=== PATIENT | male | born 1940 ===

== ENCOUNTER 2017-12-22 01:13 | Inpatient (IN) | payer MEDICARE ==
[2017-12-22 01:13] VITALS: BMI 25.7
[2017-12-22] MEDS ORDERED: Sodium Chloride 0.9% 1,000 ML IV ONE (01:29)
[2017-12-22] MEDS ORDERED: Amoxicillin-Clav 875-125 mg Tab PO STA (01:30)
[2017-12-22 01:39] LABS: BASO # 0.1 K/uL (0.0-0.2); BASO % 0.9 % (0.0-2.0); EOS # 0.6 K/uL (0.0-0.7); HEMOGLOBIN 11.9 g/dL (12.0-18.0); LYMPH # 2.9 K/uL (1.0-4.3); LYMPH % 23.8 % (20.0-40.0); MEAN CELL VOLUME 87.5 fL (80.0-94.0); MEAN CORPUSCULAR HEMOGLOBIN 28.4 pg (27.0-31.0); MEAN CORPUSCULAR HGB CONC 32.4 g/dL (33.0-37.0); MEAN PLATELET VOLUME 8.3 fL (7.2-11.7); MONO # 1.3 K/uL (0.0-0.8); MONO % 10.2 % (0.0-10.0); NEUT # 7.4 K/uL (1.8-7.0); NEUT % 60.1 % (50.0-75.0); RBC 4.19 Mil/uL (4.40-5.90); RED CELL DISTRIBUTION WIDTH 15.6 % (11.5-14.5); WHITE BLOOD COUNT 12.3 K/uL (4.8-10.8)
--- NOTE | 2017-12-22 01:40 | C.PDOC ---
History Of Present Illness 77-year-old male, who is s/p valve replacement, presents to the ED for evaluation of episode of epistaxis which began at 0100 today. Patient states he is taking Eliquis. He denies any other complaints at this time. Time Seen by Provider: 12/22/17 01:16 Chief Complaint (Nursing): ENT Problem History Per: Patient History/Exam Limitations: None Onset/Duration Of Symptoms: Hrs Current Symptoms Are (Timing): Still Present Past Medical History Reviewed: Historical Data, Nursing Documentation, Vital Signs Vital Signs: Last Vital Signs Temp 98.3 F 12/22/17 12:00 Pulse 118 H 12/22/17 09:40 Resp 19 12/22/17 09:40 BP 133/54 L 12/22/17 10:27 Pulse Ox 97 12/22/17 09:40 - Medical History PMH: Atrial Fibrillation Denies: Chronic Kidney Disease Surgical History: No Surg Hx Family History: States: Unknown Family Hx - Social History Hx Alcohol Use: No Hx Substance Use: No - Immunization History Hx Tetanus Toxoid Vaccination: Yes Hx Influenza Vaccination: Yes Hx Pneumococcal Vaccination: Yes Review Of Systems ENT: Positive for: Other (epistaxis, right nare ) Physical Exam - Physical Exam Appears: Non-toxic, No Acute Distress Skin: Normal Color, Warm, Dry Head: Atraumatic, Normacephalic Eye(s): bilateral: Normal Inspection Nose: Epistaxis (active bleeding from right nare ) Oral Mucosa: Moist Neck: Supple Chest: Symmetrical, No Deformity, No Tenderness Cardiovascular: Rhythm Regular, No Murmur Respiratory: Normal Breath Sounds, No Rales, No Rhonchi, No Wheezing Extremity: Normal ROM, Capillary Refill (less than 2 seconds ) Neurological/Psych: Oriented x3, Normal Speech, Normal Cognition ED Course And Treatment - Laboratory Results Result Diagrams: 12/22/17 03:57 12/22/17 01:32 ECG: Interpreted By Me, Viewed By Me ECG Rhythm: Atrial Fibrillation Rate From EC Medical Decision Making Medical Decision Making: Progress: Bloodwork and EKG ordered and reviewed. Augmentin PO and IV fluids given. 0150: I placed a Rhino Rocket into patient's right nostril. Patient tolerated well and bleeding was controlled. 0219: Patient started bleeding again. PCC ordered. Case discussed with Dr. Miah Junior (steam distribution supervisor), who will evaluate the patient at bedside. Disposition - Disposition Disposition: HOSPITALIZED - Scribe Statement The provider has reviewed the documentation as recorded by the Scribe (Anabela Estes) Provider Attestation: All medical record entries made by the Scribe were at my direction and personally dictated by me. I have reviewed the chart and agree that the record accurately reflects my personal performance of the history, physical exam, medical decision making, and the department course for this patient. I have also personally directed, reviewed, and agree with the discharge instructions and disposition. Procedures - Epistaxis Control Consent Obtained: verbal consent, written consent Nostril: Right Device Inserted: nasal tampon (Rhino Rocket) Patient Tolerated Procedure: well, no complications
[2017-12-22 01:46] LABS: INR 1.5; PROTHROMBIN TIME 16.2 SECONDS (9.7-12.2)
[2017-12-22] MEDS ORDERED: Hum Prothrombin CPLX(PCC)4FACT 1 Unit Inj IV STA (02:09)
[2017-12-22 02:17] LABS: ALB/GLOB RATIO 0.8 (1.0-2.1); ALBUMIN 3.4 g/dL (3.5-5.0); ALT/SGPT 22 U/L (21-72); AST/SGOT 33 U/L (17-59); BLOOD UREA NITROGEN 28 mg/dL (9-20); CALCIUM 9.3 mg/dl (8.6-10.4); GFR NON-AFRICAN AMERICAN 59
[2017-12-22] MEDS ORDERED: Oxymetazoline 0.05% Nasal Spray (30 ml) NS STA (02:36)
[2017-12-22] MEDS ORDERED: Tranexamic Acid 1,000 MG in Sodium Chloride 0.9% 50 ML IV STA (03:31)
--- NOTE | 2017-12-22 03:56 | CP.PCM.PN ---
Subjective - Date & Time of Evaluation Date of Evaluation: 12/22/17 Time of Evaluation: 03:56 - Subjective Subjective: see below Objective - Vital Signs/Intake and Output Vital Signs (last 24 hours): Temp Pulse Resp BP Pulse Ox 97.8 F 140 H 16 94/67 L 97 12/22/17 01:35 12/22/17 03:15 12/22/17 03:15 12/22/17 03:15 12/22/17 03:15 - Medications Medications: Current Medications Digoxin (Lanoxin) 0.25 mg PO DAILY [facility] Furosemide (Lasix) 20 mg PO BID COUNTS INCLUDE 234 BEDS AT THE [facility] Home Med (Multivitamin [Multivitamins]) 1 each PO DAILY COUNTS INCLUDE 234 BEDS AT THE [facility] Dextrose/Sodium Chloride (Dextrose 5%/0.45% Ns 1000 Ml) 1,000 mls @ 50 mls/hr IV .Q20H [facility] Metoprolol Tartrate (Lopressor) 50 mg PO BID [facility] Pantoprazole Sodium (Protonix Ec Tab) 40 mg PO DAILY [facility] - Labs Labs: 12/22/17 01:32 12/22/17 01:32 PT 16.2 SECONDS (9.7-12.2) H 12/22/17 01:32 INR 1.5 12/22/17 01:32 APTT 33 SECONDS (21-34) 12/22/17 01:32 Assessment and Plan - Assessment and Plan (Free Text) Assessment: ENT Consult HPI 77 y/o male with new-onset right epistaxis tonight came to ER. B/L long rhinorockets were unable to control bleeding, so i was called (i am covering tonight for Dr. Resendiz). I came in immediately, arriving 30 minutes from the time of being paged. Upon my arrival, there was slow ooze of fresh blood in the oropharynx. Patient is s/p heart valve replacement 4 weeks ago and takes Eliquis. Past Medical History Allergies amiodarone, shellfish Exam awake, alert, comfortable b/l Rhinorockets secure oc/op: clot and fresh blood in oropharynx Right rhinorocket was removed and old clot suctioned from nasal cavity. under rigid endoscopic visualization, there is brisk bleeding that appears to be coming from the mid septum superiorly (difficult to tell definitively due to brisk active bleeding). Due to its location and brisk nature of bleeding, cautery was not possible at this time. Therefore a 4.5cm Merocel sponge was placed directly into this area (between septum and middle turbinate). Bleeding did not stop, so a second pack (8cm Merocel) was then placed below it. Bleeding stopped with placement of this second pack. Strings from the longer pack were then secured to the nose. The first pack did not have strings attached to it, but is not at risk of dislodgement due to the presence of the longer pack below it. Recommend follow Hg HOB elevation abx while packs are in place to cover S. aureus (Ancef is fine) hold Eliquis / other blood thinners if possible
[2017-12-22 04:03] LABS: BASO # 0.1 K/uL (0.0-0.2); BASO % 0.5 % (0.0-2.0); EOS # 0.3 K/uL (0.0-0.7); EOS % 1.5 % (0.0-4.0); HEMOGLOBIN 9.9 g/dL (12.0-18.0); LYMPH # 1.2 K/uL (1.0-4.3); LYMPH % 6.8 % (20.0-40.0); MEAN CELL VOLUME 86.8 fL (80.0-94.0); MEAN CORPUSCULAR HGB CONC 32.2 g/dL (33.0-37.0); MONO # 1.3 K/uL (0.0-0.8); MONO % 7.4 % (0.0-10.0); NEUT # 15.1 K/uL (1.8-7.0); NEUT % 83.8 % (50.0-75.0); PLATELET COUNT 367 K/uL (130-400); RBC 3.54 Mil/uL (4.40-5.90); RED CELL DISTRIBUTION WIDTH 15.6 % (11.5-14.5)
[2017-12-22 04:25] LABS: ANISOCYTOSIS SLIGHT; EOSINOPHIL 1 % (0-4); LYMPHOCYTE 7 % (20-40); MONOCYTE 8 % (0-10); NEUTROPHIL 84 % (50-75); PLATELET ESTIMATE NORMAL (NORMAL); POIKILOCYTOSIS SLIGHT; TOTAL CELLS COUNTED 100
[2017-12-22] MEDS: Dextrose 5%/0.45% NS 1,000 ML IV SCH ×2 (04:57→10:28)
--- NOTE | 2017-12-22 08:11 | RAD ---
Date of service: 12/22/2017 HISTORY: admission COMPARISON: No prior. FINDINGS: LUNGS: Minimal right and mild moderate left basal opacity present. PLEURA: Minimal right and mild moderate left pleural effusion., No pneumothorax apparent. CARDIOVASCULAR: Cardiomegaly. Pulmonary venous status probably top-normal. OSSEOUS STRUCTURES: Bilateral shoulder arthrosis VISUALIZED UPPER ABDOMEN: Normal. OTHER FINDINGS: Metallic device projects over the heart-intrinsic versus and extrinsic etiology uncertain IMPRESSION: Bibasilar pleural effusions left greater than right with inferred compressive atelectasis left greater than right. Concomitant infiltrates here not excluded. Follow-up recommended.
[2017-12-22] MEDS ORDERED: Home Med 1 UNIT (Multivitamin [Multivitamins] 1 EACH) PO SCH (10:00)
[2017-12-22] MEDS ORDERED: Digoxin 250 mcg (0.25 mg) Tab PO SCH (10:00)
[2017-12-22] MEDS ORDERED: Pantoprazole 40 mg EC Tab PO SCH (10:00)
[2017-12-22 10:27] VITALS: PULSE 103
[2017-12-22 12:36] VITALS: TEMP 98.3
[2017-12-22] MEDS ORDERED: Amoxicillin-Clav 875-125 mg Tab PO SCH ×2 (12:47→13:15)
--- NOTE | 2017-12-22 15:14 | CP.PCM.CON ---
<Delvin Degroot - Last Filed: 12/22/17 15:42> History of Present Illness - History of Present Illness History of Present Illness: Critical care consult note: 77 y/o male with PMH of heart valve replacement ([employer], Bioprosthetic valve - taken from patient information card) afib, chf?, presents with R nose bleed. Patient accompanied by his and son reports that he is on anticoagulation for his afib, on Eliquis and since 1 am he developed right epistaxis. In the ED B/L long rhinorockets were placed however unable to control bleeding. ENT was consulted and placed Merocel 4.5cm and 8cm in the nostril. Patient denies any pain. Denies any trauma to his face. 12 Point ROS performed and neg other than stated above. PMH: as above PSH: 2 hernia repairs, heart valve replacement, Allergies: Amiodarone, shellfish FH: Denies SH: Former smoker, currently denies drinking or smoking Review of Systems - Review of Systems All systems: reviewed and no additional remarkable complaints except Past Patient History - Past Medical History & Family History Past Medical History?: Yes - Past Social History Smoking Status: Former Smoker - CARDIAC Hx Atrial Fibrillation: Yes - PULMONARY Hx Respiratory Disorders: No - NEUROLOGICAL Hx Neurological Disorder: No - HEENT Hx HEENT Problems: No - RENAL Hx Chronic Kidney Disease: No - ENDOCRINE/METABOLIC Hx Endocrine Disorders: No - HEMATOLOGICAL/ONCOLOGICAL Hx Blood Disorders: No - INTEGUMENTARY Hx Dermatological Problems: No - MUSCULOSKELETAL/RHEUMATOLOGICAL Hx Falls: No - GASTROINTESTINAL Hx Gastrointestinal Disorders: No - GENITOURINARY/GYNECOLOGICAL Hx Genitourinary Disorders: No - PSYCHIATRIC Hx Substance Use: No - SURGICAL HISTORY Hx Surgeries: Yes Hx Herniorrhaphy: Yes (ash) Hx Valve Replacement: Yes (November 2017) Other/Comment: prostate biopsy - ANESTHESIA Hx Anesthesia: Yes Hx Anesthesia Reactions: No Hx Malignant Hyperthermia: No Meds Allergies/Adverse Reactions: Allergies Allergy/AdvReac Type Severity Reaction Status Date / Time amiodarone Allergy Verified 12/22/17 01:23 FISH Allergy RASH Verified 12/22/17 01:24 shrimp Allergy RASH Verified 12/22/17 01:24 - Medications Medications: Current Medications Amoxicillin/Clavulanate Potassium (Augmentin 875 Mg-125 Mg Tab) 1 tab PO Q12 [facility] PRN Reason: Protocol Last Admin: 12/22/17 13:56 Dose: 1 tab Digoxin (Lanoxin) 0.25 mg PO DAILY [facility] Last Admin: 12/22/17 10:26 Dose: 0.25 mg Furosemide (Lasix) 20 mg PO BID [facility] Last Admin: 12/22/17 10:27 Dose: 20 mg Home Med (Multivitamin [Multivitamins]) 1 each PO DAILY [facility] Dextrose/Sodium Chloride (Dextrose 5%/0.45% Ns 1000 Ml) 1,000 mls @ 50 mls/hr IV .Q20H [facility] Last Admin: 12/22/17 10:28 Dose: 50 mls/hr Metoprolol Tartrate (Lopressor) 50 mg PO BID [facility] Last Admin: 12/22/17 10:26 Dose: 50 mg Pantoprazole Sodium (Protonix Ec Tab) 40 mg PO DAILY [facility] Last Admin: 12/22/17 10:26 Dose: 40 mg Physical Exam - Head Exam Head Exam: ATRAUMATIC, NORMOCEPHALIC - Eye Exam Eye Exam: EOMI, PERRL - ENT Exam Additional comments: Merocel in place - Respiratory Exam Respiratory Exam: Clear to Auscultation Bilateral. absent: Rales, Wheezes - Cardiovascular Exam Cardiovascular Exam: REGULAR RHYTHM, +S1, +S2 - GI/Abdominal Exam GI & Abdominal Exam: Normal Bowel Sounds, Soft. absent: Tenderness - Extremities Exam Extremities exam: Negative for: calf tenderness, pedal edema - Neurological Exam Neurological exam: Alert, CN II-XII Intact, Oriented x3 - Psychiatric Exam Psychiatric exam: Normal Mood - Skin Skin Exam: Dry, Intact, Warm Results - Vital Signs Recent Vital Signs: Last Vital Signs Temp 98.3 F 12/22/17 12:00 Pulse 92 H 12/22/17 14:00 Resp 17 12/22/17 14:00 BP 108/78 12/22/17 13:52 Pulse Ox 98 12/22/17 14:00 - Labs Result Diagrams: 12/22/17 03:57 12/22/17 01:32 Labs: Laboratory Results - last 24 hr 12/22/17 12/22/17 12/22/17 01:32 01:32 01:32 WBC 12.3 H RBC 4.19 L Hgb 11.9 L Hct 36.6 MCV 87.5 MCH 28.4 MCHC 32.4 L RDW 15.6 H Plt Count 396 MPV 8.3 Neut % (Auto) 60.1 Lymph % (Auto) 23.8 [place] % (Auto) 10.2 H Eos % (Auto) 5.0 H Baso % (Auto) 0.9 Neut # (Auto) 7.4 H Lymph # (Auto) 2.9 [place] # (Auto) 1.3 H Eos # (Auto) 0.6 Baso # (Auto) 0.1 Neutrophils % (Manual) Lymphocytes % (Manual) Monocytes % (Manual) Eosinophils % (Manual) Platelet Estimate Poikilocytosis (manual Anisocytosis (manual) PT 16.2 H INR 1.5 APTT 33 Sodium 143 Potassium 4.3 Chloride 104 Carbon Dioxide 25 Anion Gap 17 BUN 28 H Creatinine 1.2 Est GFR ( Amer) > 60 Est GFR (Non-Af Amer) 59 Random Glucose 131 H Calcium 9.3 Total Bilirubin 0.4 AST 33 ALT 22 Alkaline Phosphatase 102 Troponin I Total Protein 7.6 Albumin 3.4 L Globulin 4.1 H Albumin/Globulin Ratio 0.8 L Digoxin Blood Type Antibody Screen 12/22/17 12/22/17 12/22/17 01:32 01:45 03:57 WBC 18.0 H RBC 3.54 L Hgb 9.9 L D Hct 30.7 L MCV 86.8 MCH 28.0 MCHC 32.2 L RDW 15.6 H Plt Count 367 MPV 8.0 Neut % (Auto) 83.8 H Lymph % (Auto) 6.8 L [place] % (Auto) 7.4 Eos % (Auto) 1.5 Baso % (Auto) 0.5 Neut # (Auto) 15.1 H Lymph # (Auto) 1.2 [place] # (Auto) 1.3 H Eos # (Auto) 0.3 Baso # (Auto) 0.1 Neutrophils % (Manual) 84 H Lymphocytes % (Manual) 7 L Monocytes % (Manual) 8 Eosinophils % (Manual) 1 Platelet Estimate Normal Poikilocytosis (manual Slight Anisocytosis (manual) Slight PT INR APTT Sodium Potassium Chloride Carbon Dioxide Anion Gap BUN Creatinine Est GFR ( Amer) Est GFR (Non-Af Amer) Random Glucose Calcium Total Bilirubin AST ALT Alkaline Phosphatase Troponin I 0.0330 Total Protein Albumin Globulin Albumin/Globulin Ratio Digoxin Blood Type O POSITIVE Antibody Screen Negative 12/22/17 04:46 WBC RBC Hgb Hct MCV MCH MCHC RDW Plt Count MPV Neut % (Auto) Lymph % (Auto) [place] % (Auto) Eos % (Auto) Baso % (Auto) Neut # (Auto) Lymph # (Auto) [place] # (Auto) Eos # (Auto) Baso # (Auto) Neutrophils % (Manual) Lymphocytes % (Manual) Monocytes % (Manual) Eosinophils % (Manual) Platelet Estimate Poikilocytosis (manual Anisocytosis (manual) PT INR APTT Sodium Potassium Chloride Carbon Dioxide Anion Gap BUN Creatinine Est GFR ( Amer) Est GFR (Non-Af Amer) Random Glucose Calcium Total Bilirubin AST ALT Alkaline Phosphatase Troponin I Total Protein Albumin Globulin Albumin/Globulin Ratio Digoxin 0.5 L Blood Type Antibody Screen Assessment & Plan - Assessment and Plan (Free Text) Assessment: 77 y/o male with PMH of heart valve replacement ([employer], Bioprosthetic valve - taken from patient information card) afib, chf?, presents with R epistaxis s/ p Merocel x 2 placement. Neuro: - AAO x 3 ENT: - monitor H/H - Cont Augmentin - ENT consulted for recs - Hold Eliquis for now, as patient is actively bleeding , plan to transfer to [facility] Pulm: - Maintain SPO2 > 92% CV: - Hold eliquis as patient likely has bioprosthetic valve as per patients [employer] medical card - maintain hemodynamic stability - maintain MAP> 65 - Cont Dig, Metoprolol and Lasix - F/u cardiology consult and recs GI: - GI ppx Endo: - maintain euglycemia Renal: - Stable - Monitor I and O Heme: - Monitor H/H - Hb this am 9.9 ID: - afebrile - Cont antibiotics Augmentin as per ENT GI/DVT ppx - protonix and SCDs Plan to transfer patient to [facility] once bed available, admitting Dr Bernabe. Case and plan was reviewed and discussed with Dr Lovell. <Neo Lovell - Last Filed: 12/22/17 21:26> Meds - Medications Medications: Current Medications Amoxicillin/Clavulanate Potassium (Augmentin 875 Mg-125 Mg Tab) 1 tab PO Q12 [facility] PRN Reason: Protocol Last Admin: 12/22/17 13:56 Dose: 1 tab Digoxin (Lanoxin) 0.25 mg PO DAILY@1800 [facility] Furosemide (Lasix) 20 mg PO BID [facility] Last Admin: 12/22/17 17:23 Dose: 20 mg Dextrose/Sodium Chloride (Dextrose 5%/0.45% Ns 1000 Ml) 1,000 mls @ 50 mls/hr IV .Q20H [facility] Last Admin: 12/22/17 10:28 Dose: 50 mls/hr Metoprolol Tartrate (Lopressor) 50 mg PO BID [facility] Last Admin: 12/22/17 17:24 Dose: 50 mg Multivitamins (Hexavitamin) 1 tab PO DAILY [facility] Pantoprazole Sodium (Protonix Ec Tab) 40 mg PO DAILY [facility] Last Admin: 12/22/17 10:26 Dose: 40 mg Results - Vital Signs Recent Vital Signs: Last Vital Signs Temp 98.3 F 12/22/17 12:00 Pulse 111 H 12/22/17 21:00 Resp 21 12/22/17 21:00 BP 111/75 12/22/17 20:52 Pulse Ox 95 12/22/17 21:00 - Labs Result Diagrams: 12/22/17 18:31 12/22/17 01:32 Labs: Laboratory Results - last 24 hr 12/22/17 12/22/17 12/22/17 01:32 01:32 01:32 WBC 12.3 H RBC 4.19 L Hgb 11.9 L Hct 36.6 MCV 87.5 MCH 28.4 MCHC 32.4 L RDW 15.6 H Plt Count 396 MPV 8.3 Neut % (Auto) 60.1 Lymph % (Auto) 23.8 [place] % (Auto) 10.2 H Eos % (Auto) 5.0 H Baso % (Auto) 0.9 Neut # (Auto) 7.4 H Lymph # (Auto) 2.9 [place] # (Auto) 1.3 H Eos # (Auto) 0.6 Baso # (Auto) 0.1 Neutrophils % (Manual) Lymphocytes % (Manual) Monocytes % (Manual) Eosinophils % (Manual) Platelet Estimate Poikilocytosis (manual Anisocytosis (manual) PT 16.2 H INR 1.5 APTT 33 Sodium 143 Potassium 4.3 Chloride 104 Carbon Dioxide 25 Anion Gap 17 BUN 28 H Creatinine 1.2 Est GFR ( Amer) > 60 Est GFR (Non-Af Amer) 59 Random Glucose 131 H Calcium 9.3 Total Bilirubin 0.4 AST 33 ALT 22 Alkaline Phosphatase 102 Troponin I Total Protein 7.6 Albumin 3.4 L Globulin 4.1 H Albumin/Globulin Ratio 0.8 L Digoxin Blood Type Antibody Screen 12/22/17 12/22/17 12/22/17 01:32 01:45 03:57 WBC 18.0 H RBC 3.54 L Hgb 9.9 L D Hct 30.7 L MCV 86.8 MCH 28.0 MCHC 32.2 L RDW 15.6 H Plt Count 367 MPV 8.0 Neut % (Auto) 83.8 H Lymph % (Auto) 6.8 L [place] % (Auto) 7.4 Eos % (Auto) 1.5 Baso % (Auto) 0.5 Neut # (Auto) 15.1 H Lymph # (Auto) 1.2 Sherman # (Auto) 1.3 H Eos # (Auto) 0.3 Baso # (Auto) 0.1 Neutrophils % (Manual) 84 H Lymphocytes % (Manual) 7 L Monocytes % (Manual) 8 Eosinophils % (Manual) 1 Platelet Estimate Normal Poikilocytosis (manual Slight Anisocytosis (manual) Slight PT INR APTT Sodium Potassium Chloride Carbon Dioxide Anion Gap BUN Creatinine Est GFR ( Amer) Est GFR (Non-Af Amer) Random Glucose Calcium Total Bilirubin AST ALT Alkaline Phosphatase Troponin I 0.0330 Total Protein Albumin Globulin Albumin/Globulin Ratio Digoxin Blood Type O POSITIVE Antibody Screen Negative 12/22/17 12/22/17 04:46 18:31 WBC 12.2 H RBC 3.43 L Hgb 9.8 L Hct 29.7 L MCV 86.7 MCH 28.7 MCHC 33.1 RDW 15.4 H Plt Count 325 MPV 8.3 Neut % (Auto) Lymph % (Auto) [place] % (Auto) Eos % (Auto) Baso % (Auto) Neut # (Auto) Lymph # (Auto) Sherman # (Auto) Eos # (Auto) Baso # (Auto) Neutrophils % (Manual) Lymphocytes % (Manual) Monocytes % (Manual) Eosinophils % (Manual) Platelet Estimate Poikilocytosis (manual Anisocytosis (manual) PT INR APTT Sodium Potassium Chloride Carbon Dioxide Anion Gap BUN Creatinine Est GFR ( Amer) Est GFR (Non-Af Amer) Random Glucose Calcium Total Bilirubin AST ALT Alkaline Phosphatase Troponin I Total Protein Albumin Globulin Albumin/Globulin Ratio Digoxin 0.5 L Blood Type Antibody Screen Attending/Attestation - Attestation I have personally seen and examined this patient.: Yes I have fully participated in the care of the patient.: Yes I have reviewed all pertinent clinical information: Yes Notes (Text): 12/22/17 21:25 The patient was Seen/interviewed and examined by me at the bedside during ICU round, Medical records reviewed and Management issues were discussed and formulated with the house staff. Events reviewed I have reviewed all the relevant clinical, laboratory, hemodynamic, radiographic data and medications Pain issues, skin care, head of the bed elevation, glycemic control were addressed. I concur with resident's assessment and plan of care as transcribed in Dr. Degroot note.
--- NOTE | 2017-12-22 16:16 | CP.PCM.HP ---
Past Patient History - Past Medical History & Family History Past Medical History?: Yes - Past Social History Smoking Status: Former Smoker - CARDIAC Hx Atrial Fibrillation: Yes - PULMONARY Hx Respiratory Disorders: No - NEUROLOGICAL Hx Neurological Disorder: No - HEENT Hx HEENT Problems: No - RENAL Hx Chronic Kidney Disease: No - ENDOCRINE/METABOLIC Hx Endocrine Disorders: No - HEMATOLOGICAL/ONCOLOGICAL Hx Blood Disorders: No - INTEGUMENTARY Hx Dermatological Problems: No - MUSCULOSKELETAL/RHEUMATOLOGICAL Hx Falls: No - GASTROINTESTINAL Hx Gastrointestinal Disorders: No - GENITOURINARY/GYNECOLOGICAL Hx Genitourinary Disorders: No - PSYCHIATRIC Hx Substance Use: No - SURGICAL HISTORY Hx Surgeries: Yes Hx Herniorrhaphy: Yes (ash) Hx Valve Replacement: Yes (November 2017) Other/Comment: prostate biopsy - ANESTHESIA Hx Anesthesia: Yes Hx Anesthesia Reactions: No Hx Malignant Hyperthermia: No Meds Allergies/Adverse Reactions: Allergies Allergy/AdvReac Type Severity Reaction Status Date / Time amiodarone Allergy Verified 12/22/17 01:23 FISH Allergy RASH Verified 12/22/17 01:24 shrimp Allergy RASH Verified 12/22/17 01:24 Physical Exam - Constitutional Appears: Well - Head Exam Head Exam: ATRAUMATIC, NORMAL INSPECTION, NORMOCEPHALIC - Eye Exam Eye Exam: EOMI, Normal appearance, PERRL Pupil Exam: NORMAL ACCOMODATION, PERRL - ENT Exam ENT Exam: Mucous Membranes Moist, Normal Exam - Neck Exam Neck exam: Positive for: Normal Inspection - Respiratory Exam Respiratory Exam: Decreased Breath Sounds - Cardiovascular Exam Cardiovascular Exam: REGULAR RHYTHM, +S1, +S2 - GI/Abdominal Exam GI & Abdominal Exam: Diminished Bowel Sounds, Soft - Rectal Exam Rectal Exam: Deferred Results - Vital Signs Recent Vital Signs: Last Vital Signs Temp 98.3 F 12/22/17 12:00 Pulse 90 12/22/17 16:00 Resp 20 12/22/17 16:00 BP 121/80 12/22/17 15:53 Pulse Ox 98 12/22/17 16:00 - Labs Result Diagrams: 12/22/17 03:57 12/22/17 01:32 Labs: Laboratory Results - last 24 hr 12/22/17 12/22/17 12/22/17 01:32 01:32 01:32 WBC 12.3 H RBC 4.19 L Hgb 11.9 L Hct 36.6 MCV 87.5 MCH 28.4 MCHC 32.4 L RDW 15.6 H Plt Count 396 MPV 8.3 Neut % (Auto) 60.1 Lymph % (Auto) 23.8 [place] % (Auto) 10.2 H Eos % (Auto) 5.0 H Baso % (Auto) 0.9 Neut # (Auto) 7.4 H Lymph # (Auto) 2.9 [place] # (Auto) 1.3 H Eos # (Auto) 0.6 Baso # (Auto) 0.1 Neutrophils % (Manual) Lymphocytes % (Manual) Monocytes % (Manual) Eosinophils % (Manual) Platelet Estimate Poikilocytosis (manual Anisocytosis (manual) PT 16.2 H INR 1.5 APTT 33 Sodium 143 Potassium 4.3 Chloride 104 Carbon Dioxide 25 Anion Gap 17 BUN 28 H Creatinine 1.2 Est GFR ( Amer) > 60 Est GFR (Non-Af Amer) 59 Random Glucose 131 H Calcium 9.3 Total Bilirubin 0.4 AST 33 ALT 22 Alkaline Phosphatase 102 Troponin I Total Protein 7.6 Albumin 3.4 L Globulin 4.1 H Albumin/Globulin Ratio 0.8 L Digoxin Blood Type Antibody Screen 12/22/17 12/22/17 12/22/17 01:32 01:45 03:57 WBC 18.0 H RBC 3.54 L Hgb 9.9 L D Hct 30.7 L MCV 86.8 MCH 28.0 MCHC 32.2 L RDW 15.6 H Plt Count 367 MPV 8.0 Neut % (Auto) 83.8 H Lymph % (Auto) 6.8 L [place] % (Auto) 7.4 Eos % (Auto) 1.5 Baso % (Auto) 0.5 Neut # (Auto) 15.1 H Lymph # (Auto) 1.2 [place] # (Auto) 1.3 H Eos # (Auto) 0.3 Baso # (Auto) 0.1 Neutrophils % (Manual) 84 H Lymphocytes % (Manual) 7 L Monocytes % (Manual) 8 Eosinophils % (Manual) 1 Platelet Estimate Normal Poikilocytosis (manual Slight Anisocytosis (manual) Slight PT INR APTT Sodium Potassium Chloride Carbon Dioxide Anion Gap BUN Creatinine Est GFR ( Amer) Est GFR (Non-Af Amer) Random Glucose Calcium Total Bilirubin AST ALT Alkaline Phosphatase Troponin I 0.0330 Total Protein Albumin Globulin Albumin/Globulin Ratio Digoxin Blood Type O POSITIVE Antibody Screen Negative 12/22/17 04:46 WBC RBC Hgb Hct MCV MCH MCHC RDW Plt Count MPV Neut % (Auto) Lymph % (Auto) [place] % (Auto) Eos % (Auto) Baso % (Auto) Neut # (Auto) Lymph # (Auto) [place] # (Auto) Eos # (Auto) Baso # (Auto) Neutrophils % (Manual) Lymphocytes % (Manual) Monocytes % (Manual) Eosinophils % (Manual) Platelet Estimate Poikilocytosis (manual Anisocytosis (manual) PT INR APTT Sodium Potassium Chloride Carbon Dioxide Anion Gap BUN Creatinine Est GFR ( Amer) Est GFR (Non-Af Amer) Random Glucose Calcium Total Bilirubin AST ALT Alkaline Phosphatase Troponin I Total Protein Albumin Globulin Albumin/Globulin Ratio Digoxin 0.5 L Blood Type Antibody Screen
[2017-12-22 18:44] LABS: HEMOGLOBIN 9.8 g/dL (12.0-18.0); MEAN CELL VOLUME 86.7 fL (80.0-94.0); MEAN CORPUSCULAR HEMOGLOBIN 28.7 pg (27.0-31.0); MEAN CORPUSCULAR HGB CONC 33.1 g/dL (33.0-37.0); MEAN PLATELET VOLUME 8.3 fL (7.2-11.7); RBC 3.43 Mil/uL (4.40-5.90); RED CELL DISTRIBUTION WIDTH 15.4 % (11.5-14.5); WHITE BLOOD COUNT 12.2 K/uL (4.8-10.8)
[2017-12-22 21:25] VITALS: O2SAT 95
[2017-12-22 23:01] VITALS: BP 130/77; PULSE 102; RESP 26
--- NOTE | 2017-12-23 05:14 | CON ---
DATE: 12/22/2017 REASON FOR CONSULTATION: Epistaxis. HISTORY: This is a 77-year-old male on Eliquis who presented to the ER this morning with epistaxis on the right. The patient was packed by Dr. Junior and Dr. Junior did a nasal endoscopy to view where the bleeding was coming from. The bleeding was coming from the right side at an area between the septum and the middle turbinate. That area was packed with Merocel gauze and another Merocel gauze was placed inferior to it and that controlled the bleeding. The patient had noticed a small episode of bleeding now about 14 hours after the patient was packed by Dr. Junior, that episode stopped. PHYSICAL EXAMINATION: GENERAL: The patient is resting. There is no bleeding at this point. ASSESSMENT AND PLAN: Since the bleeding is coming from an area that was possibly close to the skull base and he has been on Eliquis there is a chance that if I try to cauterize the bleeding area in the operating room I can go through the skull base; therefore, I contacted Dr. Santiago at the [facility]. I had advised ICU to do a type and cross on him and do a CBC. Gaetano Resendiz MD MTDD
[2017-12-23] MEDS ORDERED: Multiple Vitamins Tab PO SCH (10:00)
[2017-12-23] MEDS ORDERED: Digoxin 250 mcg (0.25 mg) Tab PO SCH (18:00)
== END 2017-12-22 23:27 | disposition short-term general hospital (02) | DRG 151 ==
LOC: C.ER 01:13 → C.5S 01:54 → C.9E 05:10 → C.9I 06:33
PROVIDERS: ADMIT Internal Medicine Nephrology; ATTEND Internal Medicine Nephrology
PROC: 2Y41X5Z Packing of Nasal Region using Packing Material (ICD-10-PCS; principal; 2017-12-22)
DX: R04.0 Epistaxis (principal); I48.91 Unspecified atrial fibrillation; Z79.01 Long term (current) use of anticoagulants; I50.9 Heart failure, unspecified; Z95.2 Presence of prosthetic heart valve; Z87.891 Personal history of nicotine dependence